=== PATIENT | male | born 2000 | race Caucasian/White ===

== ENCOUNTER 2020-07-26 02:28 | Emergency (ER) | payer OTHER ==
[2020-07-26] MEDS ORDERED: Acetaminophen/HYDROcodone 325-5 MG Tab PO STA (03:14)
[2020-07-26] MEDS ORDERED: Ketorolac 60 MG/2 ML SDV IM STA (03:14)
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
--- NOTE | 2020-07-26 10:47 | CR ---
INDICATION: Tripped at work with right knee injury. RIGHT KNEE: Three views of the right knee were obtained and revealed slight prominence at the suprapatellar bursa suggesting a small knee joint effusion. There is slight irregularity at the medial intercondylar spine which could be on the basis of minimal previous trauma producing some hypertrophic change and should be correlated clinically. Overlying artifact is noted in that area. A definite acute fracture or dislocation, or other significant bone or joint abnormality, was not identified. If symptoms persist - if occult abnormality is suspected clinically, reexamination by x-ray in 10 to 14 days or possibly MRI of the right knee may be helpful for further evaluation. [id number]
== END 2020-07-26 05:35 | disposition home or self-care (01) ==
LOC: FB.ED 02:28
DX: S83.91XA Sprain of unspecified site of right knee, initial encounter (principal); F17.210 Nicotine dependence, cigarettes, uncomplicated; E66.9 Obesity, unspecified; Z68.38 Body mass index [BMI] 38.0-38.9, adult; Z91.048 Other nonmedicinal substance allergy status; Z79.899 Other long term (current) drug therapy; X50.1XXA Overexertion from prolonged static or awkward postures, initial encounter; Y93.H1 Activity, digging, shoveling and raking; Y92.89 Other specified places as the place of occurrence of the external cause; Y99.0 Civilian activity done for income or pay
CPT/HCPCS: 73562; 96372; 99000; 99283; A9270; J1885

== ENCOUNTER 2023-01-16 18:40 | Emergency (ER) | payer OTHER ==
[2023-01-16] MEDS: Ondansetron 4 MG/2 ML SDV IM ONE (20:05)
[2023-01-16] MEDS: Ketorolac 30 MG/ML SDV IM ONE (20:06)
== END 2023-01-16 20:43 | disposition home or self-care (01) ==
LOC: FB.ED 18:40
DX: S06.0X0A Concussion without loss of consciousness, initial encounter (principal); J45.909 Unspecified asthma, uncomplicated; E66.9 Obesity, unspecified; Z68.38 Body mass index [BMI] 38.0-38.9, adult; Z72.0 Tobacco use; Z91.048 Other nonmedicinal substance allergy status; W01.198A Fall on same level from slipping, tripping and stumbling with subsequent striking against other object, initial encounter; Y92.89 Other specified places as the place of occurrence of the external cause; Y99.0 Civilian activity done for income or pay
CPT/HCPCS: 70450; 72125; 72128; 72131; 96372; 99000; 99283; J1885; J2405